=== PATIENT | female | born 1990 | race Caucasian/White ===

== ENCOUNTER 2024-11-06 06:18 | Day surgery (SDC) | payer OTHER ==
[~2024-11-06] VITALS: Ht 165.1 cm; Wt 91.9 kg
[~2024-11-06 06:18] MED LIST: ACET1TAB55 PO; PRAZ1CAP PO; ROZE8TAB16 PO; SERT-141 PO
[2024-11-06] MEDS ORDERED: NS (Normal Saline) 0.9% 1,000 ML IV SCH ×2 (06:25→09:30)
[2024-11-06] MEDS ORDERED: propofoL 200 MG/20 ML VIAL As Ordered ONE (06:30)
[2024-11-06] MEDS ORDERED: ROCURONIUM BROMIDE 50MG/5ML VIAL As Ordered ONE (06:32)
[2024-11-06] MEDS ORDERED: LIDOCAINE 2% 100MG/5ML SDV (FOR ANES.) As Ordered ONE (06:33)
[2024-11-06] MEDS ORDERED: KETOROLAC 60MG 2ML VIAL As Ordered ONE (06:35)
[2024-11-06] MEDS ORDERED: ONDANSETRON 4MG 2ML VIAL As Ordered ONE (06:35)
[2024-11-06] MEDS ORDERED: fentaNYL 100 MCG/2 ML INJECTION As Ordered ONE (06:39)
[2024-11-06] MEDS ORDERED: MIDAZOLAM INJ 2MG/2ML VIAL As Ordered ONE (06:41)
[2024-11-06] MEDS ORDERED: propofoL 500 MG/50 ML VIAL As Ordered ONE (06:43)
[2024-11-06 06:56] LABS: HEMATOCRIT 41.6 % (36.0-47.0); HEMOGLOBIN 13.9 g/dl (12.0-15.5); MEAN CORPUSCULAR HEMOGLOBIN 28.1 pg (27.0-33.0); MEAN CORPUSCULAR HGB CONC 33.4 g/dl (32.0-36.5); MEAN CORPUSCULAR VOLUME 84.2 fl (80.0-96.0); PLATELET COUNT, AUTOMATED 233 10^3/uL (150-450); RED BLOOD COUNT 4.94 10^6/uL (4.00-5.40); WHITE BLOOD COUNT 5.8 10^3/uL (4.0-10.0)
[2024-11-06] MEDS: ACETAMINOPHEN 500 MG TAB PO ONE (07:01)
[2024-11-06] MEDS: SCOPOLAMINE 1MG TRANSDERMAL PATCH TOP ONE (07:02)
[2024-11-06] MEDS: METHYLENE BLUE 0.5% (5MG/ML) 10 ML AMP (PROVAYBLUE) As Ordered ONE (09:15)
[2024-11-06] MEDS ORDERED: ONDANSETRON 4MG 2ML VIAL IV PRN (09:30)
[2024-11-06] MEDS ORDERED: HYDROMORPHONE HCL 0.5 MG/ 0.5 ML SYRINGE IV PRN (09:30)
[2024-11-06] MEDS ORDERED: oxyCODONE 5MG TAB PO PRN (09:30)
[2024-11-06] MEDS ORDERED: fentaNYL 100 MCG/2 ML INJECTION IV PRN (09:30)
[2024-11-06] MEDS: MEPERIDINE 25 MG/ML 1ML VIAL IV PRN (10:02)
[2024-11-06 10:55] VITALS: BP 110/76; TEMP 97.9; O2SAT 95
== END 2024-11-06 10:57 | disposition home or self-care (01) ==
LOC: M SDC 06:18
PROVIDERS: ATTEND General Practice
DX: R10.2 Pelvic and perineal pain (principal); N80.9 Endometriosis, unspecified; E66.9 Obesity, unspecified; F41.9 Anxiety disorder, unspecified; F43.10 Post-traumatic stress disorder, unspecified; G43.909 Migraine, unspecified, not intractable, without status migrainosus; Z79.899 Other long term (current) drug therapy
CPT/HCPCS: 36415; 58350; 58662; 81025; 85027; 86850; 86900; 86901; J0665; J1100; J1885; J2175; J2250; J2405; J3010; Q9968

== ENCOUNTER → 2025-06-07 | Outpatient (REF) | payer OTHER ==
[2025-06-07 17:16] LABS: APPEARANCE, URINE CLEAR (CLEAR); BACTERIA, URINE AUTO NEGATIVE (NEGATIVE); BILIRUBIN, URINE AUTO NEGATIVE (NEGATIVE); BLOOD, URINE BLOOD NEGATIVE (NEGATIVE); GLUCOSE, URINE (UA) AUTO NEGATIVE (NEGATIVE); KETONE, URINE AUTO NEGATIVE (NEGATIVE); LEUKOCYTE ESTERASE, URINE AUTO NEGATIVE (NEGATIVE); NITRITE, URINE AUTO NEGATIVE (NEGATIVE); PROTEIN, URINE AUTO NEGATIVE (NEGATIVE); RBC, URINE AUTO 0 /HPF (0-3); SPECIFIC GRAVITY URINE AUTO 1.008 (1.002-1.035); SQUAMOUS EPITHELIAL CELL UR AU 1 /HPF (0-6); UROBILINOGEN, URINE AUTO 0.2 mg/dL (0.0-2.0); WBC, URINE AUTO 0 /HPF (0-3)
== END ==
LOC: M SMT 16:51
PROVIDERS: ATTEND Nurse Practitioner Family
DX: N32.81 Overactive bladder (principal)

== ENCOUNTER → 2025-07-03 | Outpatient (CLI) | payer OTHER | LOC: M RAD 13:59 | PROVIDERS: ATTEND Nurse Practitioner Family | DX: N32.81 Overactive bladder (principal) ==